=== PATIENT | male | born 1995 | race Caucasian/White ===

== ENCOUNTER → 2020-07-04 17:02 | Outpatient (BNVA) | payer OTHER, SELFPAY | PROVIDERS: Family Provider Nurse Practitioner Family; PCP Nurse Practitioner Family; Visit Provider Nurse Practitioner Family | DX: Z11.59 Encounter for screening for other viral diseases (principal) | CPT/HCPCS: 87635 ==

== ENCOUNTER → 2021-08-14 18:50 | Outpatient (BNVA) | payer OTHER, SELFPAY | PROVIDERS: Family Provider Nurse Practitioner Family; PCP Nurse Practitioner Family; Visit Provider Registered Nurse Neonatal Intensive Care | DX: Z20.822 Contact with and (suspected) exposure to COVID-19 (principal) | CPT/HCPCS: 87635 ==

== ENCOUNTER 2021-08-20 08:13 | Outpatient (CLI) | payer OTHER, SELFPAY ==
[2021-08-20 08:45] VITALS: BP 131/91; PULSE 112; RESP 17; TEMP 36.8; O2SAT 92
[2021-08-20 10:02] VITALS: BP 129/87; PULSE 104; RESP 19; TEMP 36.7; O2SAT 93
[2021-08-20 10:52] VITALS: BP 131/86; PULSE 101; RESP 17; TEMP 36.6; O2SAT 95
[2021-08-20 11:40] VITALS: BP 131/86; PULSE 101; RESP 17; TEMP 36.6; O2SAT 95
== END 2021-08-20 11:43 | disposition home or self-care (01) ==
LOC: OPS 08:14
PROVIDERS: PCP Nurse Practitioner Family; Visit Provider Nurse Practitioner
DX: U07.1 COVID-19 (principal)
CPT/HCPCS: 96365

== ENCOUNTER 2023-10-20 22:31 | Inpatient (IN) | payer BC, SELFPAY ==
[2023-10-20 22:49] VITALS: BP 146/97; PULSE 130; RESP 18; TEMP 36.9; O2SAT 94
[2023-10-20 22:53] LABS: Basophils # 0.1 10^3/uL (0.0-0.1); Basophils % 0.6 %; Hematocrit 46.8 % (37-53); Lymphocytes # 1.5 10^3/uL (0.8-4.8); Lymphocytes % 13.5 %; Mean Corpuscular HGB Conc 33.1 g/dL (30-55); Mean Corpuscular Hemoglobin 28.5 pg (27-33); Mean Corpuscular Volume 86.2 fl (82-101); Mean Platelet Volume 10.9 fL (7.4-10.4); Monocytes # 0.7 10^3/uL (0.2-0.9); Monocytes % 6.5 %; Neutrophils # 8.45 10^3/uL (1.8-7.7); Neutrophils % 77.7 %; Nucleated Red Blood Cells % 0 %; Platelet Count 214 10^3/cmm (157-399); Red Blood Count 5.43 10^6/uL (3.85-5.65); Red Cell Distribution Width 13.1 % (12.1-15.1); White Blood Count 10.89 10^3/uL (3.29-11.43)
[2023-10-20 23:12] LABS: Alanine Aminotransferase 18 U/L (0-41); Albumin Level 3.5 g/dL (3.5-5.2); Alkaline Phosphatase 121 U/L (40-130); Anion Gap 31.3 (5-19); Aspartate Amino Transferase 15 U/L (0-40); Blood Urea Nitrogen 15 mg/dL (6-20); Calcium 9.1 mg/dL (8.5-10.5); Carbon Dioxide 12 mmol/L (22-29); Chloride 92 mmol/L (98-107); Creatinine Clr Calc Pharmacy 121.0898; Globulin 4.5 g/dL (1.3-4.6); Glomerular Filtration Rate 79.1 mL/min (90-130); Glucose 318 mg/dL (65-115); Lipase 19 U/L (13-60); Osmolality Calculated 285 mOsm/kg (285-295); Potassium 4.3 mmol/L (3.5-5.1); Sodium 131 mmol/L (136-145); Total Bilirubin 0.4 mg/dL (0.15-1.2)
[2023-10-20 23:15] VITALS: PULSE 127; O2SAT 93
[2023-10-20 23:27] VITALS: BP 134/100; PULSE 126; O2SAT 92
[2023-10-20 23:30] VITALS: BP 146/98; PULSE 125; O2SAT 92
[2023-10-21] VITALS (33 sets, daily range): BP systolic 101–149; BP diastolic 62–91; PULSE 87–124; RESP 15–33; TEMP 36.6–37.1; O2SAT 92–99; BMI 38.0
[2023-10-21 00:12] LABS: Ketone (Acetest) Serum Positive (Negative)
[2023-10-21 00:13] LABS: Influenza A by IFA negative (Negative); Influenza B by IFA negative (Negative)
--- NOTE | 2023-10-21 00:18 | ED_ITS ---
HPI - Nausea/Vomiting/Diarrhea 2 General: Chief complaint: Nausea/Vomiting/Diarrhea Stated complaint: N/V, Fever Time Seen by Provider: 10/21/23 00:04 Source: patient Mode of arrival: ambulatory Limitations: no limitations History of Present Illness: 47-year-old male states had multiple epi sodes of vomiting over the last 2 days. He states he had roughly 20 episodes not been able to tolerate any fluids. He states he had weakness and is feeling quite dehydrated he has had fevers at home he is afebrile here he had a slight cough he denies any abdominal pain denies any worsening proving factors he is not a known diabetic Associated nausea: Yes Associated symtoms: Reports headache(s) and nausea; Denies chest pain or dysuria Review of Systems 2 Const: Reports: fever(s); Denies: chills, body aches or change in appetite ENMT: Denies: throat pain or dental pain Card: Denies: chest pain Resp: Reports: non-productive cough; Denies: dyspnea GI: Reports: nausea and vomiting; Denies: abdominal pain or diarrhea : Denies: dysuria Musc: Denies: neck pain or back pain Skin/Breast: Denies: rash Neuro: Reports: headache(s) PFSH ED 2 PFSH: Social History Smoking and tobacco/nicotine status: never used tobacco/nicotine Physical Exam 2 Const: COMMON NORMALS: no acute distress, patient oriented x3 and healthy appearing HENMT: COMMON NORMALS: normocephalic and atraumatic HEAD & SCALP: n ormocephalic and atraumatic Eye: COMMON NORMALS: Equal, round and reactive pupils present and EOMs intact bilaterally PUPIL: Yes Equal, round and reactive pupils present Neck/C-Spine: COMMON NORMALS: full ROM and supple Chest: COMMONS NORMALS: normal inspection of the chest and normal palpation of entire chest wall Resp: COMMON NORMALS: normal respiratory effort, No retractions, No use of accessory muscles and clear to auscultation bilaterally AUSCULTATION: clear to auscultation bilaterally Cardio: COMMON NORMALS: regular rhythm and No murmurs present (Cardio) R ATE: tachycardic RHYTHM: regular rhythm GI: COMMON NORMALS: Normal to inspection, nondistended, normoactive bowel sounds present, Soft to palpation, non-tender and no masses PALPATION: Yes Soft to palpation Extremity: COMMON NORMALS: normal to inspection and full ROM Neuro: COMMON NORMALS: patient oriented x3, moves all extremities and no focal motor deficits Psych: COMMON NORMALS: mental status grossly normal, Normal thought process present and cooperative THOUGHT PROCESS: Normal thought process present Skin: COMMON NORMALS: no rashes or lesions noted and no wounds GENERAL SKIN EXAM: no rashes or lesions noted Course 2 Vital Signs: Vital signs: Vital Signs Temperature 98.5 F 10/20/23 22:49 Pulse Rate 114 H 10/21/23 00:59 Respiratory Rate 18 10/20/23 22:49 Blood Pressure 122/73 10/21/23 00:59 Pulse Oximetry 95 10/21/23 00:59 Oxygen Delivery Me thod Room Air 10/21/23 00:35 MDM - Nausea/Vomiting/Diarrhea Medical Decision Making Patient presents here with vomiting he is tachycardic as well he is found to have hyperglycemia along with large anion gap with serum ketones he is likely in DKA we will check hemoglobin A1c he has known signs of infection here spoke to the hospitalist will start insulin drip and admit to ICU Medical Records I reviewed the patient's medical records. Lab Data I reviewed the patient's lab results. 10/20/23 22:49 10/20/23 22:49 Laboratory Results WBC 10.89 10^3/uL (3.29-11.43) 10/20/23 22:49 RBC 5.43 10^6/uL (3.85-5.65) 10/20/23 22:49 Hgb 15.50 g/dL (11.27-16.99) 10/20/23 22:49 Hct 46.8 % (37-53) 10/20/23 22:49 MCV 86.2 fl (82-101) 10/20/23 22:49 MCH 28.5 pg (27-33) 10/20/23 22:49 MCHC 33.1 g/dL (30-55) 10/20/23 22:49 RDW 13.1 % (12.1-15.1) 10/20/23 22:49 Plt Count 214 10^3/cmm (157-399) 10/20/23 22:49 MPV 10.9 fL (7.4-10.4) H 10/20/23 22:49 Neut % (Auto) 77.7 % 10/20/23 22:49 Lymph % (Auto) 13.5 % 10/20/23 22:49 [place] % (Auto) 6.5 % 10/20/23 22:49 Eos % (Auto) 0.0 % 10/20/23 22:49 Baso % (Auto) 0.6 % 10/20/23 22:49 Neut # (Auto) 8.45 10^3/uL (1.8-7.7) H 10/20/23 22:49 Lymph # (Auto) 1.5 10^3/uL (0.8-4.8) 10/20/23 22:49 [place] # (Auto) 0.7 10^3/uL (0.2-0.9) 10/20/23 22:49 Eos # (Auto) 0.0 10^3/uL (0.0-0.8) 10/20/23 22:49 Baso # (Auto) 0.1 10^3/uL (0.0-0.1) 10/20/23 22:49 Nucleated RBC % (auto) 0 % 10/20/23 22:49 Nucleated RBCs # 0.0 /100WBC 10/20/23 22:49 Specimen Type Arterial 10/21/23 00:23 Sample Site Brachial, right 10/21/23 00:23 ABG pH 7.32 (7.35-7.45) L 10/21/23 00:23 ABG pCO2 18.3 mmHg (35-45) L* 10/21/23 00:23 ABG pO2 65.5 mmHg (80.0-100.0) L 10/21/23 00:23 ABG HCO3 9.4 mmol/L (22-26) L 10/21/23 00:23 ABG Base Excess -14.0 mmol/L (-2.0-2.0) L 10/21/23 00:23 Hans Test N/a 10/21/23 00:23 Hematocrit 46.0 % (42-52) 10/21/23 00:23 O2 Delivery Device Room air 10/21/23 00:23 Check Clerk ID [email or web address] 10/21/23 00:23 Sodium 131 mmol/L (136-145) L 10/20/23 22:49 Potassium 4.3 mmol/L (3.5-5.1) 10/20/23 22:49 Chloride 92 mmol/L (98-107) L 10/20/23 22:49 Carbon Dioxide 12 mmol/L (22-29) L 10/20/23 22:49 Anion Gap 31.3 (5-19) H 10/20/23 22:49 BUN 15 mg/dL (6-20) 10/20/23 22:49 Creatinine 1.1 mg/dL (0.7-1.2) 10/20/23 22:49 GFR Calculation 79.1 mL/min (90-130) L 10/20/23 22:49 Glucose 318 mg/dL (65-115) H 10/20/23 22:49 Calculated Osmolality 285 mOsm/kg (285-295) 10/20/23 22:49 Lactic Acid 2.5 mmol/L (0.5-2.2) H 10/20/23 22:49 Calcium 9.1 mg/dL (8.5-10.5) 10/20/23 22:49 Total Bilirubin 0.4 mg/dL (0.15-1.2) 10/20/23 22:49 AST 15 U/L (0-40) 10/20/23 22:49 ALT 18 U/L (0-41) 10/20/23 22:49 Alkaline Phosphatase 121 U/L (40-130) 10/20/23 22:49 Total Protein 8.0 g/dL (6.6-8.7) 10/20/23 22:49 Albumin 3.5 g/dL (3.5-5.2) 10/20/23 22:49 Globulin 4.5 g/dL (1.3-4.6) 10/20/23 22:49 Lipase 19 U/L (13-60) 10/20/23 22:49 Serum Ketones Positive (Negative) H 10/20/23 22:49 Influenza Type A Ag negative (Negative) 10/20/23 23:50 Influenza Type B Ag negative (Negative) 10/20/23 23:50 SARS-CoV-2 Ag (Rapid) negative (Negative) 10/20/23 23:50 All radiology interpretation(s) finalized by discharge Discharge Plan Discharge Patient Disposition: Admitted As Inpatient Admit Provider: Rina Bazzi Clinical Impression: DKA (diabetic ketoacidosis) Condition: Stable Coding Level of Care Code ED Customer Support Manager for Lianeg Franca
[2023-10-21] MEDS: sodium chloride 0.9% 1,000 ML 999 ML IV ×3 (00:24→05:20)
[2023-10-21 00:32] LABS: Lactic Sepsis W/Reflex 2.5 mmol/L (0.5-2.2)
--- NOTE | 2023-10-21 00:33 | XRR_ITS ---
PROCEDURE INFORMATION: Exam: XR Chest Exam date and time: 10/21/2023 1:04 AM Age: 27 years old Clinical indication: Fever TECHNIQUE: Imaging protocol: Radiologic exam of the chest. Views: 1 view. COMPARISON: No relevant prior studies available. FINDINGS: Lungs: Suspect patchy medial right lower lobe infrahilar airspace opacities. Pleural spaces: Unremarkable. No pleural effusion. No pneumothorax. Heart/Mediastinum: Unremarkable. No cardiomegaly. Bones/joints: Unremarkable. XR/XR chest 1V portable [id number] IMPRESSION: 1. Right lower lobe bronchopneumonia is suspected. 2. Recommend PA and lateral chest radiograph correlation.
[2023-10-21 00:34] LABS: ABG PH Result 7.32 (7.35-7.45); Blood Gas Sample Site Brachial, right; Blood Gas Sample Type Arterial; HCO3 ABG 9.4 mmol/L (22-26); Oxygen Device ROOM AIR; PO2 ABG 65.5 mmHg (80.0-100.0)
[2023-10-21 00:35] LABS: SARS Covid-2 Antigen negative (Negative)
[2023-10-21 00:36] LABS: ABG PCO2 18.3 mmHg (35-45)
[2023-10-21] MEDS: insulin regular-human 250 UNIT in sodium chloride 0.9% 250 ML 11.6199999999999992 UNIT IV (01:39)
--- NOTE | 2023-10-21 01:39 | PC.NURSE ---
Report was called to MILAD Estrada in ICU. All questions and concerns addressed at time of report. Patient transported with all paperwork and belongings.
[2023-10-21 01:55] LABS: Reflex Lactate Order REFLEX LACTIC ORDERD
[2023-10-21 01:59] LABS: Estmated Average Glucose 329; Hemoglobin A1C 13.1 % (4.0-6.0)
[2023-10-21] MEDS: dextrose 5%-sod chloride 0.9% 1,000 ML 100 ML IV (02:43)
[2023-10-21 02:56] LABS: Glucose Point of Care 243 mg/dL (70-110)
[2023-10-21 02:56] LABS: Glucose Point of Care 329 mg/dL (70-110)
--- NOTE | 2023-10-21 03:06 | P.HP_ITS ---
Providers/Chief Complaint 2 Admitting Physician: Rina Bazzi MD Chief Complaint: N/V, Fever History of Present Illness Sebastián Polanco is a 27 year old male without known medical comorbidities who presents with c/o nausea, vomiting, inability to tolerate po intake since 3-4 days. No diarrhea or abdominal pain. He c/o dizziness and fatigue. Reported fever 102F earlier today but afebrile currently. He was found to be in DKA with blood glucose > 300, + serum ketones and anion gap of 31.1. HBa1c returned at 13.5. He denies any history of known DM. Has h/o DM in first degree relatives, does not know details about his parents. Denies any chest pain, dyspnea, palpitations or syncope ROS+ dry non productive cough. States he has noted wheezing Review of Systems 2 General: Reports: 10 or more systems reviewed and unremarkable except in HPI and below Const: Denies: fever(s), chills or body aches Eyes: Denies: change in vision, blurry vision or photophobia ENMT: Reports: hoarseness; Denies: throat pain, enlarged tonsils, odynophagia or nasal congestion Card: Denies: chest pain, palpitations, irregular heart rhythm, edema, swelling of feet/ankles, lightheadedness, pre-syncope, dyspnea on exertion or orthopnea Resp: Denies: dyspnea, productive cough, non-productive cough, wheezing, stridor, pain on inspiration, change in phlegm color, hemoptysis or chest congestion GI: Reports: nausea and vomiting; Denies: abdominal pain, hematemesis, coffee ground emesis, dysphagia, heartburn, diarrhea, constipation, GI cramping, change in stool character, hematochezia or melena : Denies: flank pain, dysuria, urinary frequency, urinary urgency, urinary hesitancy or hematuria Musc: Denies: neck pain, back pain, extremity pain, joint swelling, joint warmth or deformity Neuro: Denies: headache(s), numbness in extremities, weakness in extremities, sensory changes, difficulty walking, frequent falls, dizziness, vertigo, behavioral changes, Slurred speech present or seizure-like activity Psych: Denies: anxiety, depression, suicidal ideation or homicidal ideation Endo: Denies: polyuria, polydipsia, tired all the time, cold intolerance or hot flashes Gabriel/Lymph: Denies: easy bruising or easy bleeding Medications/Allergies Home Medications Medication Instructions Recorded Confirmed Last Taken Type No Known Home Medications 04/13/20 08/19/21 Unknown History Allergies Allergy/AdvReac Type Severity Reaction Status Date / Time No Known Allergies Allergy Verified 10/20/23 22:54 PFSH Acute 2 PFSH: Social History Smoking and tobacco/nicotine status: never used tobacco/nicotine Vitals/I&O/Wt Last Vital Signs Temp 98.5 F 10/20/23 22:49 Pulse 110 H 10/21/23 03:04 Resp 20 H 10/21/23 03:04 BP 117/74 10/21/23 03:04 Pulse Ox 99 10/21/23 03:04 O2 Del Method Room Air 10/21/23 03:04 10/20/23 10/20/23 10/21/23 14:59 22:59 06:59 Intake Total 814 / 814 Balance 814 / 814 Weight last 48 hrs Weight 113.398 kg Weight 113.398 kg Physical Exam 2 Narrative: General: No acute distress, AO x3 HEENT: PERRLA, pupils bilaterally equal and reactive, pallors not present Chest: Normal vesicular breath sounds, no added sounds, equal good air entry bilaterally CVS: S1-S2 regular, no murmurs, no tachycardia, no gallops, no rubs Abdomen: Soft, nontender, no organomegaly, bowel sounds present Neuro: No focal deficits, no facial deformity, AO x3, power 5/5 in all limbs Data 10/20/23 22:49 10/21/23 02:55 Micro: Microbiology 10/21/23 00:33 Blood Culture - Preliminary Blood SPECIMEN COLLECTED 10/21/23 00:25 Blood Culture - Preliminary Blood SPECIMEN COLLECTED Other data: XR/XR chest 1V portable [id number] IMPRESSION: 1. Right lower lobe bronchopneumonia is suspected. 2. Recommend PA and lateral chest radiograph correlation. A&P Assessment and plan (1) DKA (diabetic ketoacidosis): Admit to ICU Start insulin drip per DKA protocol ABG 7.32/ co2 18.3, po2 65.5, hco3 9.4; reflecting metabolic acidosis recived IVF bolus in ER Continue IVF @ 100 cc/hr once blood sugar less than 250, change to d5NS @ 125 cc/hr target K 3.5-5 Change to s/c insulin once anion gap normalized holding off on bicarb infusion for now given pH > 7.2, monitor BMP q4h Hba1c 13, consistent with new diagnosis of diabetes mellitus (2) Bronchopneumonia: RLL patchy opacity c/f bronchopneumonia noted fever 102F at home negative covid and flu ag start empiric ceftriaxone and azithromycin albuterol inhalation prn Plan DVT ppx; lovenox 40 Full code Attestations 2 Medical Necessity Statement*: > 2 midnight admission anticipated Coding Level of Care Code Acute Code for Chg Fwd High MDM includes number and complexity of problems actively addressed during encounter, amount and/or complexity of data reviewed/ordered and described risk of complication, morbidity or mortality of management as documented Diagnoses DKA (diabetic ketoacidosis) E11.10 Bronchopneumonia J18.0
[2023-10-21 03:20] LABS: Add Urine Microscopic? YES; Bilirubin Urine Neg (Negative); Blood Urine 2+ (Negative); Glucose Urine UA 4+ (Normal); Ketones Urine 3+ (Negative); Leukocyte Esterase Urine Negative (Negative); Nitrate Urine Negative (Negative); Protein Urine 3+ (Negative); Specific Gravity, Urine 1.025 (1.005-1.030); Urine Appearance Clear (CLEAR); Urine Color Yellow (Yellow); Urobilinogen Urine Neg (Negative); pH Urine 5 (5-7)
[2023-10-21 03:22] LABS: Add Urine Culture? No; Bacteria Urine TRACE /hpf; RBC Urine 0-4 /hpf (0-2)
[2023-10-21 03:39] LABS: Glucose Point of Care 222 mg/dL (70-110)
[2023-10-21 03:42] LABS: Anion Gap 26.5 (5-19); Blood Urea Nitrogen 14 mg/dL (6-20); Calcium 8.1 mg/dL (8.5-10.5); Carbon Dioxide 12 mmol/L (22-29); Chloride 98 mmol/L (98-107); Creatinine Clr Calc Pharmacy 121.0898; Glomerular Filtration Rate 79.1 mL/min (90-130); Glucose 255 mg/dL (65-115); Osmolality Calculated 285 mOsm/kg (285-295); Potassium 3.5 mmol/L (3.5-5.1); Sodium 133 mmol/L (136-145)
[2023-10-21 03:43] LABS: Lactic Acid level (Lactate) 2.3 mmol/L (0.5-2.2)
[2023-10-21 03:53] LABS: Thyroid Stimulating Hormone 1.48 uIU/mL (0.27-4.20)
[2023-10-21] MEDS: enoxaparin 40 mg/0.4 mL Syringe SUBCUT (03:53)
[2023-10-21] MEDS: cefTRIAXone 1,000 MG in sodium chloride 0.9% (plus) 50 ML 100 MG IV (05:13)
[2023-10-21] MEDS: lidocaine 1% 5 ML in potassium chloride premix 100 ML 26.25 ML IV (05:15)
[2023-10-21 07:10] LABS: Anion Gap 17.8 (5-19); Blood Urea Nitrogen 13 mg/dL (6-20); Calcium 8.1 mg/dL (8.5-10.5); Carbon Dioxide 18 mmol/L (22-29); Chloride 100 mmol/L (98-107); Creatinine Clr Calc Pharmacy 133.1988; Glomerular Filtration Rate 88.3 mL/min (90-130); Glucose 177 mg/dL (65-115); Osmolality Calculated 278 mOsm/kg (285-295); Potassium 3.8 mmol/L (3.5-5.1); Sodium 132 mmol/L (136-145)
[2023-10-21 07:35] LABS: Glucose Point of Care 205 mg/dL (70-110)
[2023-10-21 07:35] LABS: Glucose Point of Care 165 mg/dL (70-110)
[2023-10-21 07:35] LABS: Glucose Point of Care > 600 mg/dL (70-110)
[2023-10-21 08:26] LABS: Glucose Point of Care 178 mg/dL (70-110)
--- NOTE | 2023-10-21 08:41 | PC.NURSE ---
Verbal order Dr. Albarran to increase D5+NS to 150 and recheck BG in 30minutes for support of insulin drip.
[2023-10-21 08:58] LABS: Glucose Point of Care 215 mg/dL (70-110)
[2023-10-21 09:25] LABS: Glucose Point of Care 311 mg/dL (70-110)
[2023-10-21] MEDS: pantoprazole DR 40 mg Tablet PO (09:25)
[2023-10-21] MEDS: azithromycin 250 mg Tablet 500 MG PO (09:25)
[2023-10-21 09:39] LABS: Glucose Point of Care 203 mg/dL (70-110)
[2023-10-21 10:07] LABS: Glucose Point of Care 262 mg/dL (70-110)
[2023-10-21 10:42] LABS: Iron 35 ug/dL (59-158); Total Iron Binding Capacity 166 mcg/dl; Unsaturated Iron Binding 131 ug/dL (112-347); Vitamin B12 282 pg/mL (232-1245)
[2023-10-21 11:04] LABS: Glucose Point of Care 262 mg/dL (70-110)
[2023-10-21] MEDS: dextrose 5%-sod chloride 0.9% 1,000 ML 150 ML IV (11:32)
[2023-10-21 12:13] LABS: Glucose Point of Care 244 mg/dL (70-110)
[2023-10-21 12:46] LABS: Anion Gap 12.8 (5-19); Blood Urea Nitrogen 13 mg/dL (6-20); Calcium 7.7 mg/dL (8.5-10.5); Carbon Dioxide 19 mmol/L (22-29); Chloride 106 mmol/L (98-107); Creatinine Clr Calc Pharmacy 166.4985; Glomerular Filtration Rate 114.3 mL/min (90-130); Glucose 265 mg/dL (65-115); Osmolality Calculated 287 mOsm/kg (285-295); Potassium 3.8 mmol/L (3.5-5.1); Sodium 134 mmol/L (136-145)
[2023-10-21 13:05] LABS: Glucose Point of Care 258 mg/dL (70-110)
[2023-10-21 14:02] LABS: Glucose Point of Care 260 mg/dL (70-110)
[2023-10-21] MEDS: insulin glargine 100 units/1 mL 20 UNIT SUBCUT (14:16)
--- NOTE | 2023-10-21 14:46 | P.PN_ITS ---
Subjective 2 Subjective: Admitted overnight. H&P and labs appreciated. Today morning patient seen laying comfortably in bed. Denies any nausea vomiting, headache. Has remained hemodynamically stable and afebrile. Today morning seen on insulin drip. Again later seen in the day anion gap has closed and was transition from insulin drip to subcu insulins. Vitals/I&O/Wt Last Vital Signs Temp 97.8 F 10/21/23 14:25 Pulse 94 10/21/23 14:00 Resp 25 H 10/21/23 14:00 BP 126/74 10/21/23 14:00 Pulse Ox 94 10/21/23 14:00 O2 Del Method Room Air 10/21/23 14:00 10/20/23 10/21/23 10/21/23 22:59 06:59 14:59 Intake Total 3146.255 / 3146.255 1008.893 / 1008.893 Output Total 650 / 650 Balance 2496.255 / 2496.255 1008.893 / 1008.893 Weight last 48 hrs Weight 113.398 kg Weight 113.398 kg Weight 113.398 kg Physical Exam 2 Narrative: General: No acute distress, AO x3, obese HEENT: PERRLA, pupils bilaterally equal and reactive, pallors not present Chest: Normal vesicular breath sounds, no added sounds, equal good air entry bilaterally CVS: S1-S2 regular, no murmurs, no tachycardia, no gallops, no rubs Abdomen: Soft, nontender, no organomegaly, bowel sounds present Neuro: No focal deficits, no facial deformity, AO x3, power 5/5 in all limbs Data 10/20/23 22:49 10/21/23 12:02 Micro: Microbiology 10/21/23 02:51 Bacterial Antigens - Final Urine Kidney 10/21/23 00:33 Blood Culture - Preliminary Blood SPECIMEN COLLECTED 10/21/23 00:25 Blood Culture - Preliminary Blood SPECIMEN COLLECTED A&P Assessment and plan (1) DKA (diabetic ketoacidosis): New diagnosis of type 2 diabetes mellitus. A1c of more than 13. Anion gap has closed. Switch fluid to normal saline at 75 cc/h. Stop insulin drip. Switch to Lantus 20 units daily, insulin sliding scale ACHS low protocol. Start on carb consistent diet. Repeat BMP in 4 hours to make sure that anion gap remains closed. Monitor electrolytes. Potassium stable for now. Patient will most likely need to be discharged on insulin's with regular follow- up. Patient is agreeable. Check lipid panel. TSH normal. (2) Bronchopneumonia: RLL patchy opacity c/f bronchopneumonia. Patient remains on room air. Flu and COVID swab negative. Check urine Legionella, bacterial antigen. Sputum culture. Continue with empiric IV ceftriaxone and azithromycin for community-acquired pneumonia. Albuterol as needed. Plan DVT ppx; lovenox 40 Full code Attestations 2 Medical Necessity Statement*: Requires further hospitalization for management of diabetic ketoacidosis and the patient with new diagnosis of type 2 diabetes mellitus Diagnoses DKA (diabetic ketoacidosis) E11.10 Bronchopneumonia J18.0
[2023-10-21] MEDS: sodium chloride 0.9% 1,000 ML 75 ML IV (15:01)
[2023-10-21] MEDS: acetaminophen 325 mg Tablet 650 MG PO (15:13)
[2023-10-21 16:03] LABS: Glucose Point of Care 219 mg/dL (70-110)
[2023-10-21 16:35] LABS: Glucose Point of Care 230 mg/dL (70-110)
[2023-10-21 17:22] LABS: Glucose Point of Care 228 mg/dL (70-110)
[2023-10-21] MEDS: insulin lispro 100 unit/1 mL SUBCUT ×2 (17:47→20:56)
[2023-10-21 18:08] LABS: Anion Gap 15.6 (5-19); Blood Urea Nitrogen 12 mg/dL (6-20); Calcium 7.6 mg/dL (8.5-10.5); Carbon Dioxide 16 mmol/L (22-29); Chloride 108 mmol/L (98-107); Glomerular Filtration Rate 133.3 mL/min (90-130); Glucose 275 mg/dL (65-115); Osmolality Calculated 292 mOsm/kg (285-295); Potassium 3.6 mmol/L (3.5-5.1); Sodium 136 mmol/L (136-145)
[2023-10-21 19:37] LABS: Glucose Point of Care 291 mg/dL (70-110)
[2023-10-22] VITALS (14 sets, daily range): BP systolic 113–150; BP diastolic 75–104; PULSE 88–96; RESP 19–26; TEMP 36.3–36.6; O2SAT 93–95
[2023-10-22] MEDS: enoxaparin 40 mg/0.4 mL Syringe SUBCUT (02:27)
[2023-10-22 04:30] LABS: Basophils # 0.1 10^3/uL (0.0-0.1); Basophils % 0.9 %; Eosinophils # 0.1 10^3/uL (0.0-0.8); Eosinophils % 1.4 %; Hematocrit 38.7 % (37-53); Lymphocytes % 35.3 %; Mean Corpuscular HGB Conc 32.8 g/dL (30-55); Mean Corpuscular Hemoglobin 28.3 pg (27-33); Mean Corpuscular Volume 86.2 fl (82-101); Mean Platelet Volume 11.3 fL (7.4-10.4); Monocytes # 0.7 10^3/uL (0.2-0.9); Monocytes % 11.7 %; Neutrophils # 2.74 10^3/uL (1.8-7.7); Neutrophils % 49.3 %; Nucleated Red Blood Cells % 0 %; Platelet Count 175 10^3/cmm (157-399); Red Blood Count 4.49 10^6/uL (3.85-5.65); Red Cell Distribution Width 13.4 % (12.1-15.1); White Blood Count 5.56 10^3/uL (3.29-11.43)
[2023-10-22 04:47] LABS: Chol HDL Ratio 8.76 mg/dL (1.0-5.00); Cholesterol 184 mg/dL (0-200); HDL Cholesterol 21 mg/dL (60-100); Magnesium 2.1 mg/dL (1.7-2.3); Triglycerides 409 mg/dL (0-150); VLDL Cholestrol Calculation 82 mg/dL (0-30)
[2023-10-22 04:50] LABS: Alanine Aminotransferase 15 U/L (0-41); Albumin Level 2.7 g/dL (3.5-5.2); Alkaline Phosphatase 90 U/L (40-130); Anion Gap 18.7 (5-19); Aspartate Amino Transferase 14 U/L (0-40); Blood Urea Nitrogen 10 mg/dL (6-20); Carbon Dioxide 17 mmol/L (22-29); Chloride 107 mmol/L (98-107); Globulin 3.5 g/dL (1.3-4.6); Glomerular Filtration Rate 133.3 mL/min (90-130); Glucose 223 mg/dL (65-115); Osmolality Calculated 294 mOsm/kg (285-295); Potassium 3.7 mmol/L (3.5-5.1); Sodium 139 mmol/L (136-145); Total Bilirubin 0.2 mg/dL (0.15-1.2); Total Protein 6.2 g/dL (6.6-8.7)
[2023-10-22 05:04] LABS: LDL Cholesterol Direct 85 mg/dL (0-100)
[2023-10-22] MEDS: sodium chloride 0.9% 1,000 ML 75 ML IV (05:31)
[2023-10-22] MEDS: insulin glargine 100 units/1 mL 20 UNIT SUBCUT (05:31)
[2023-10-22] MEDS: cefTRIAXone 1,000 MG in sodium chloride 0.9% (plus) 50 ML 100 MG IV (05:31)
[2023-10-22 05:45] LABS: Folate Level 13.8 ng/mL (4.5-32.2)
[2023-10-22 08:15] LABS: Glucose Point of Care 205 mg/dL (70-110)
[2023-10-22] MEDS: insulin lispro 100 unit/1 mL SUBCUT ×2 (08:45→11:52)
[2023-10-22] MEDS: pantoprazole DR 40 mg Tablet PO (08:46)
[2023-10-22] MEDS: azithromycin 250 mg Tablet 500 MG PO (08:46)
--- NOTE | 2023-10-22 09:47 | PM.DCS ---
Discharge Providers Date of Admission: 10/21/23 00:47 Date of Discharge: October 22, 2023 Attending Provider at Admission: Rina Bazzi MD Attending Provider at Discharge: Mino Albarran MD Diagnoses at Discharge Discharge Diagnosis (1) DKA (diabetic ketoacidosis): Status: Acute (2) Bronchopneumonia: Status: Acute Reason for Visit Reason for Visit: N/V, Fever Brief History: History as per HPI: Sebastián Polanco is a 27 year old male without known medical comorbidities who presents with c/o nausea, vomiting, inability to tolerate po intake since 3-4 days. No diarrhea or abdominal pain. He c/o dizziness and fatigue. Reported fever 102F earlier today but afebrile currently. He was found to be in DKA with blood glucose > 300, + serum ketones and anion gap of 31.1. HBa1c returned at 13.5. He denies any history of known DM. Has h/o DM in first degree relatives, does not know details about his parents. Denies any chest pain, dyspnea, palpitations or syncope ROS+ dry non productive cough. States he has noted wheezing Hospital Course Hospital Course Patient was admitted to the hospital further evaluation and management of diabetic ketoacidosis in setting of new diagnosis of type 2 diabetes mellitus. He was started on treatment with insulin drip and IV fluids as per DKA protocol. He responded well to the treatment and his anion gap has remained closed after initiation of subcu insulin and diet. He has been discharged in medically stable condition with advised to take Lantus 20 units twice daily along with insulin Humalog premeals 3 units. He is to check his blood sugar daily at home premeals and maintain a blood sugar diary and follow-up with a primary care provider onsite appointment. Discharge instructions were discussed in detail with patient and his mother at bedside and both verbalized understanding. Physical Exam Narrative: General: No acute distress, AO x3, obese HEENT: PERRLA, pupils bilaterally equal and reactive, pallors not present Chest: Normal vesicular breath sounds, no added sounds, equal good air entry bilaterally CVS: S1-S2 regular, no murmurs, no tachycardia, no gallops, no rubs Abdomen: Soft, nontender, no organomegaly, bowel sounds present Neuro: No focal deficits, no facial deformity, AO x3, power 5/5 in all limbs Discharge Data Studies Completed and Pending Completed Studies During Hospitalization Category Date Time Status CXRP [XR chest 1V portable [id number]] Stat Exams 10/21/23 00:33 Completed Pending at discharge Category Date Time Status Blood Culture Stat Lab 10/21/23 00:33 Results MAG [Magnesium] AM LABS Lab 10/23/23 04:00 Ordered MAG [Magnesium] AM LABS Lab 10/24/23 04:00 Ordered Sputum Culture and Gram Stain Stat Lab 10/21/23 14:49 Uncollected Radiology Impressions Chest X-Ray 10/21/23 00:33 IMPRESSION: 1. Right lower lobe bronchopneumonia is suspected. 2. Recommend PA and lateral chest radiograph correlation. Laboratory Results WBC 5.56 10^3/uL (3.29-11.43) 10/22/23 03:48 RBC 4.49 10^6/uL (3.85-5.65) 10/22/23 03:48 Hgb 12.70 g/dL (11.27-16.99) 10/22/23 03:48 Hct 38.7 % (37-53) 10/22/23 03:48 MCV 86.2 fl (82-101) 10/22/23 03:48 MCH 28.3 pg (27-33) 10/22/23 03:48 MCHC 32.8 g/dL (30-55) 10/22/23 03:48 RDW 13.4 % (12.1-15.1) 10/22/23 03:48 Plt Count 175 10^3/cmm (157-399) 10/22/23 03:48 MPV 11.3 fL (7.4-10.4) H 10/22/23 03:48 Neut % (Auto) 49.3 % 10/22/23 03:48 Lymph % (Auto) 35.3 % 10/22/23 03:48 [place] % (Auto) 11.7 % 10/22/23 03:48 Eos % (Auto) 1.4 % 10/22/23 03:48 Baso % (Auto) 0.9 % 10/22/23 03:48 Neut # (Auto) 2.74 10^3/uL (1.8-7.7) 10/22/23 03:48 Lymph # (Auto) 2.0 10^3/uL (0.8-4.8) 10/22/23 03:48 [place] # (Auto) 0.7 10^3/uL (0.2-0.9) 10/22/23 03:48 Eos # (Auto) 0.1 10^3/uL (0.0-0.8) 10/22/23 03:48 Baso # (Auto) 0.1 10^3/uL (0.0-0.1) 10/22/23 03:48 Nucleated RBC % (auto) 0 % 10/22/23 03:48 Nucleated RBCs # 0.0 /100WBC 10/22/23 03:48 Specimen Type Arterial 10/21/23 00:23 Sample Site Brachial, right 10/21/23 00:23 ABG pH 7.32 (7.35-7.45) L 10/21/23 00:23 ABG pCO2 18.3 mmHg (35-45) L* 10/21/23 00:23 ABG pO2 65.5 mmHg (80.0-100.0) L 10/21/23 00:23 ABG HCO3 9.4 mmol/L (22-26) L 10/21/23 00:23 ABG Base Excess -14.0 mmol/L (-2.0-2.0) L 10/21/23 00:23 Hans Test N/a 10/21/23 00:23 Hematocrit 46.0 % (42-52) 10/21/23 00:23 O2 Delivery Device Room air 10/21/23 00:23 Fishing Vessel Mate ID [email or web address] 10/21/23 00:23 Sodium 139 mmol/L (136-145) 10/22/23 03:48 Potassium 3.7 mmol/L (3.5-5.1) 10/22/23 03:48 Chloride 107 mmol/L (98-107) 10/22/23 03:48 Carbon Dioxide 17 mmol/L (22-29) L 10/22/23 03:48 Anion Gap 18.7 (5-19) 10/22/23 03:48 BUN 10 mg/dL (6-20) 10/22/23 03:48 Creatinine 0.7 mg/dL (0.7-1.2) 10/22/23 03:48 GFR Calculation 133.3 mL/min (90-130) H 10/22/23 03:48 Glucose 223 mg/dL (65-115) H 10/22/23 03:48 POC Glucose 205 mg/dL (70-110) H 10/22/23 08:10 Estimat Average Glucose 329 10/20/23 22:49 Hemoglobin A1c 13.1 % (4.0-6.0) H 10/20/23 22:49 Calculated Osmolality 294 mOsm/kg (285-295) 10/22/23 03:48 Lactic Acid 2.5 mmol/L (0.5-2.2) H 10/20/23 22:49 Lactic Acid (Sepsis) 2.3 mmol/L (0.5-2.2) H 10/21/23 02:55 Calcium 8.0 mg/dL (8.5-10.5) L 10/22/23 03:48 Magnesium 2.1 mg/dL (1.7-2.3) 10/22/23 03:48 Iron 35 ug/dL (59-158) L 10/21/23 06:49 TIBC 166 mcg/dl 10/21/23 06:49 % Saturation 21.0 % (20-50) 10/21/23 06:49 Unsat Iron Binding 131 ug/dL (112-347) 10/21/23 06:49 Total Bilirubin 0.2 mg/dL (0.15-1.2) 10/22/23 03:48 AST 14 U/L (0-40) 10/22/23 03:48 ALT 15 U/L (0-41) 10/22/23 03:48 Alkaline Phosphatase 90 U/L (40-130) 10/22/23 03:48 Total Protein 6.2 g/dL (6.6-8.7) L 10/22/23 03:48 Albumin 2.7 g/dL (3.5-5.2) L 10/22/23 03:48 Globulin 3.5 g/dL (1.3-4.6) 10/22/23 03:48 Triglycerides 409 mg/dL (0-150) H 10/22/23 03:48 Cholesterol 184 mg/dL (0-200) 10/22/23 03:48 LDL Cholesterol Direct 85 mg/dL (0-100) 10/22/23 03:48 LDL Cholesterol, Calc Not Reportable 10/22/23 03:48 Total VLDL Cholesterol 82 mg/dL (0-30) H 10/22/23 03:48 HDL Cholesterol 21 mg/dL (60-100) L 10/22/23 03:48 Cholesterol/HDL Ratio 8.76 mg/dL (1.0-5.00) H 10/22/23 03:48 Lipase 19 U/L (13-60) 10/20/23 22:49 Vitamin B12 282 pg/mL (232-1245) 10/21/23 06:49 Folate 13.8 ng/mL (4.5-32.2) 10/22/23 03:48 TSH Cancelled 10/21/23 06:49 Urine Color Yellow (Yellow) 10/21/23 02:51 Urine Appearance Clear (CLEAR) 10/21/23 02:51 Urine pH 5 (5-7) 10/21/23 02:51 Ur Specific [place] 1.025 (1.005-1.030) 10/21/23 02:51 Urine Protein 3+ (Negative) H 10/21/23 02:51 Urine Glucose (UA) 4+ (Normal) H 10/21/23 02:51 Urine Ketones 3+ (Negative) H 10/21/23 02:51 Urine Blood 2+ (Negative) H 10/21/23 02:51 Urine Nitrate Negative (Negative) 10/21/23 02:51 Urine Bilirubin Neg (Negative) 10/21/23 02:51 Urine Urobilinogen Neg mg/dL (Negative) 10/21/23 02:51 Ur Leukocyte Esterase Negative (Negative) 10/21/23 02:51 Urine RBC 0-4 /hpf (0-2) H 10/21/23 02:51 Urine WBC None /hpf (0-5) 10/21/23 02:51 Ur Squamous Epith Cells None /hpf (0-5) 10/21/23 02:51 Amorphous Sediment Not Reportable 10/21/23 02:51 Urine Bacteria Trace /hpf (NONE) 10/21/23 02:51 Serum Ketones Positive (Negative) H 10/20/23 22:49 Influenza Type A Ag negative (Negative) 10/20/23 23:50 Influenza Type B Ag negative (Negative) 10/20/23 23:50 SARS-CoV-2 Ag (Rapid) negative (Negative) 10/20/23 23:50 Vitals Last Vital Signs Temp 97.9 F 10/22/23 04:00 Pulse 91 10/22/23 06:00 Resp 19 H 10/22/23 06:00 BP 113/75 10/22/23 06:00 Pulse Ox 95 10/22/23 06:00 O2 Del Method Room Air 10/21/23 18:00 Discharge Plan Discharge Patient Disposition: Home Condition: Stable Prescriptions: New Lantus Solostar U-100 Insulin 100 unit/mL (3 mL) insulin pen 20 unit SUBCUT BID Qty: 15 0RF Humalog KwikPen Insulin 100 unit/mL insulin pen 3 unit SUBCUT TID Qty: 15 0RF (DME) lancets Misc See Rx Instructions .ROUTE .MEDSUPPLY Qty: 100 0RF Rx Instructions: As directed (DME) Blood Glucose Monitoring Kit See Rx Instructions .ROUTE .MEDSUPPLY Qty: 1 0RF Rx Instructions: As directed (DME) BD Ultra-Fine Micro Pen Needle 32 gauge x 1/4 needle See Rx Instructions .ROUTE .MEDSUPPLY Qty: 50 0RF Rx Instructions: As directed Discharge Orders: Discharge Order (Routine); Ordered 10/22/23 Ordered By: Mino Albarran Referrals: Jamie Blas MD [Physician] - 11/04/23 1:30 pm Discharge Diet: Diabetic Discharge Activity: Resume usual activity and Increase activity as tolerated Patient Instructions: Insulin Glargine (By injection) (Lantus, Lantus SoloStar, [place], Semglee), Insulin Lispro (By injection) (Humalog, Humalog Pen, Lispro-PFC,..., Diabetic Gastroparesis (DC), Diabetic Ketoacidosis (DC), Meal Planning with Diabetes Exchanges (DC), Pneumonia (DC), Diabetic Hyperglycemia (DC), Type 2 Diabetes Management for Adults (DC), Opioid Safety, Pneumonia Stoplight Activity Restrictions/Additional Instructions: Please check your blood sugars 3 times a day before meals. A target fasting blood sugar should be less than 120 and Premeal should be less than 140 before lunch and dinner. Take Lantus 2 times a day 20 units, take Humalog 3 units before each meal. Please maintain a blood sugar diary and follow-up with a primary care provider on set appointment for further adjustments to insulin as needed. You should have a repeat A1c done in 6 months. Discharge Attestations Time Spent in Discharge Care*: greater than 30 min Specific Discharge Activities: educating patient, educating and/or supporting family/caregiver, discussing with pcp/other providers, discussing with special education case manager/social workers/dc planners, documenting/other paperwork and evaluating patient/reviewing data Quality Metrics Clinical Quality Measures [ No reported AMI, CVA or VTE this stay] Coding Level of Care Code 73858 Total time (in minutes) for Discharge: 60 Diagnoses DKA (diabetic ketoacidosis) E11.10 Bronchopneumonia J18.0
[2023-10-22 11:52] LABS: Glucose Point of Care 217 mg/dL (70-110)
--- NOTE | 2023-10-22 12:37 | PC.NURSE ---
Diabetes Education provided: Insulin syringe use, injection sites and drawing up insulin, pt was able to verbalized and demonstrate effectively. Differences between short and long acting insulin discussed pt and family verbalized back.
--- NOTE | 2023-10-22 13:46 | PC.NURSE ---
Discharge instructions provided and discussed. Pt and Aunt verbalized understanding. Follow-up appts and new medications discussed. Multiple care noted provided on diabetes topics. Pt discharge home
[2023-10-28 16:05] LABS: GAD 65 IA-2 Antibody <5.4 U/mL (<5.4); GAD Insulin Autoantibody <0.4 U/mL (<0.4); Glutamic Acid Decarboxylase 65 <5 IU/mL (<5)
== END 2023-10-22 13:47 | disposition home or self-care (01) | DRG 637 ==
LOC: ER 10-21 00:37 → ICU 10-21 00:48
PROVIDERS: Admitting Provider Student in an Organized Health Care Education/Training Program; Emergency Provider Emergency Medicine; Visit Provider Student in an Organized Health Care Education/Training Program
DX: E11.10 Type 2 diabetes mellitus with ketoacidosis without coma (principal); J18.0 Bronchopneumonia, unspecified organism; Z11.52 Encounter for screening for COVID-19
CPT/HCPCS: 36415; 36416; 36600; 71045; 80048; 80053; 80061; 81001; 82009; 82607; 82746; 82803; 82962; 83036; 83540; 83550; 83605; 83690; 83721; 83735; 84443; 85025; 86337; 86341; 86403; 87040; 87426; 87449; 87804; 96360; 96372; 99285; J0696; J1650; J1815; J3480; J7030; J7042; J7050; Q0144

== ENCOUNTER 2024-03-21 09:09 | Outpatient (CLI) | payer BC, SELFPAY ==
[2024-03-21 09:57] LABS: Estmated Average Glucose 163; Hemoglobin A1C 7.3 % (4.0-6.0)
[2024-03-21 10:02] LABS: Alanine Aminotransferase 53 U/L (0-41); Albumin Level 3.8 g/dL (3.5-5.2); Alkaline Phosphatase 87 U/L (40-130); Anion Gap 15.2 (5-19); Aspartate Amino Transferase 31 U/L (0-40); Blood Urea Nitrogen 16 mg/dL (6-20); Carbon Dioxide 22 mmol/L (22-29); Chloride 108 mmol/L (98-107); Cholesterol 184 mg/dL (0-200); Globulin 3.2 g/dL (1.3-4.6); Glomerular Filtration Rate 132.4 mL/min (90-130); Glucose 205 mg/dL (65-115); HDL Cholesterol 40 mg/dL (60-100); LDL Cholesterol Calculated 103 mg/dL (50-129); LDL HDL Ratio 2.58 RATIO (0.00-3.22); Osmolality Calculated 299 mOsm/kg (285-295); Potassium 4.2 mmol/L (3.5-5.1); Sodium 141 mmol/L (136-145); Total Bilirubin 0.4 mg/dL (0.15-1.2); Triglycerides 206 mg/dL (0-150)
[2024-03-21 10:39] LABS: Creatinine Urine, Random 91 mg/dL (39-259)
[2024-03-21 10:54] LABS: Microalbum Creatinine Ratio Ur 923 mg/dL (0-20); Microalbumin Random Urine 84 ug/dL (0-20)
[2024-03-22 09:40] LABS: C-Peptide 2.55 ng/mL (0.80-3.85)
== END 2024-03-21 09:10 | disposition home or self-care (01) ==
LOC: LAB 09:10
PROVIDERS: PCP Family Medicine Adult Medicine; Visit Provider Internal Medicine
DX: E13.9 Other specified diabetes mellitus without complications (principal)
CPT/HCPCS: 36415; 80053; 80061; 82044; 83036; 84681

== ENCOUNTER 2024-10-12 08:34 | Outpatient (CLI) | payer BC, SELFPAY ==
[2024-10-12 09:38] LABS: Estmated Average Glucose 169; Hemoglobin A1C 7.5 % (4.0-6.0)
[2024-10-12 09:54] LABS: Alanine Aminotransferase 56 U/L (0-41); Albumin Level 3.8 g/dL (3.5-5.2); Alkaline Phosphatase 92 U/L (40-130); Blood Urea Nitrogen 23 mg/dL (6-20); Calcium 9.2 mg/dL (8.5-10.5); Carbon Dioxide 22 mmol/L (22-29); Chloride 102 mmol/L (98-107); Chol HDL Ratio 6.41 mg/dL (1.0-5.00); Cholesterol 218 mg/dL (0-200); Globulin 3.4 g/dL (1.3-4.6); Glomerular Filtration Rate 132.4 mL/min (90-130); Glucose 186 mg/dL (65-115); HDL Cholesterol 34 mg/dL (60-100); Osmolality Calculated 293 mOsm/kg (285-295); Sodium 137 mmol/L (136-145); Total Bilirubin 0.4 mg/dL (0.15-1.2); Total Protein 7.2 g/dL (6.6-8.7); Triglycerides 436 mg/dL (0-150)
[2024-10-12 09:57] LABS: Anion Gap 17.3 (5-19); Aspartate Amino Transferase 42 U/L (0-40); Potassium 4.3 mmol/L (3.5-5.1)
[2024-10-12 10:14] LABS: Creatinine Urine, Random 63 mg/dL (39-259)
[2024-10-12 10:30] LABS: Microalbum Creatinine Ratio Ur 1730 mg/dL (0-20); Microalbumin Random Urine 109 ug/dL (0-20)
[2024-10-12 10:31] LABS: LDL Cholesterol Direct 107 mg/dL (0-100)
== END 2024-10-12 08:35 | disposition home or self-care (01) ==
LOC: LAB 08:36
PROVIDERS: PCP Family Medicine Adult Medicine; Visit Provider Internal Medicine
DX: E13.9 Other specified diabetes mellitus without complications (principal); E78.2 Mixed hyperlipidemia
CPT/HCPCS: 36415; 80053; 80061; 82044; 83036; 83721

== ENCOUNTER 2025-01-13 14:31 | Outpatient (CLI) | payer BC, SELFPAY ==
[2025-01-13 15:45] LABS: Alanine Aminotransferase 57 U/L (0-41); Albumin Level 3.8 g/dL (3.5-5.2); Alkaline Phosphatase 89 U/L (40-130); Anion Gap 16.2 (5-19); Aspartate Amino Transferase 37 U/L (0-40); Blood Urea Nitrogen 15 mg/dL (6-20); Calcium 9.5 mg/dL (8.5-10.5); Carbon Dioxide 23 mmol/L (22-29); Chloride 102 mmol/L (98-107); Chol HDL Ratio 5.05 mg/dL (1.0-5.00); Cholesterol 192 mg/dL (0-200); Globulin 3.5 g/dL (1.3-4.6); Glomerular Filtration Rate 131.5 mL/min (90-130); Glucose 152 mg/dL (65-115); HDL Cholesterol 38 mg/dL (60-100); LDL Cholesterol Calculated 85 mg/dL (50-129); LDL HDL Ratio 2.24 RATIO (0.00-3.22); Osmolality Calculated 288 mOsm/kg (285-295); Potassium 4.2 mmol/L (3.5-5.1); Sodium 137 mmol/L (136-145); Total Bilirubin 0.5 mg/dL (0.15-1.2); Total Protein 7.3 g/dL (6.6-8.7); Triglycerides 343 mg/dL (0-150)
[2025-01-13 15:47] LABS: Creatinine Urine, Random 107 mg/dL (39-259)
[2025-01-13 15:52] LABS: Estmated Average Glucose 183
[2025-01-13 16:02] LABS: Microalbum Creatinine Ratio Ur 1196 mg/dL (0-20); Microalbumin Random Urine 128 ug/dL (0-20)
== END 2025-01-13 14:32 | disposition home or self-care (01) ==
PROVIDERS: Visit Provider Internal Medicine
DX: E11.8 Type 2 diabetes mellitus with unspecified complications (principal)
CPT/HCPCS: 36415; 80053; 80061; 82044; 83036

== ENCOUNTER 2025-04-20 08:03 | Outpatient (CLI) | payer BC, SELFPAY ==
[2025-04-20 08:54] LABS: Estmated Average Glucose 166; Hemoglobin A1C 7.4 % (4.0-6.0)
[2025-04-20 09:05] LABS: Alanine Aminotransferase 64 U/L (0-41); Albumin Level 4.1 g/dL (3.5-5.2); Alkaline Phosphatase 84 U/L (40-130); Anion Gap 16.4 (5-19); Aspartate Amino Transferase 49 U/L (0-40); Blood Urea Nitrogen 16 mg/dL (6-20); Calcium 9.3 mg/dL (8.5-10.5); Carbon Dioxide 25 mmol/L (22-29); Chloride 101 mmol/L (98-107); Cholesterol 183 mg/dL (0-200); Globulin 3.3 g/dL (1.3-4.6); Glucose 186 mg/dL (65-115); HDL Cholesterol 36 mg/dL (60-100); Osmolality Calculated 292 mOsm/kg (285-295); Potassium 4.4 mmol/L (3.5-5.1); Sodium 138 mmol/L (136-145); Total Protein 7.4 g/dL (6.6-8.7); Triglycerides 288 mg/dL (0-150)
[2025-04-20 09:06] LABS: Creatinine Urine, Random 136 mg/dL (39-259)
[2025-04-20 09:19] LABS: Microalbum Creatinine Ratio Ur 1279 mg/dL (0-20)
== END 2025-04-20 08:04 | disposition home or self-care (01) ==
PROVIDERS: PCP Family Medicine Adult Medicine; Visit Provider Internal Medicine
DX: E78.2 Mixed hyperlipidemia (principal)
CPT/HCPCS: 36415; 80053; 80061; 82044; 83036